=== PATIENT | male | born 1975 | race American Indian/Alaskan Native ===

== ENCOUNTER → 2017-11-04 08:14 | Outpatient (CLI) | payer OTHER, SELFPAY ==
[2017-11-04 10:01] LABS: Add Manual Diff / Slide Review NO; Basophils Percent Auto 0.5 % (0-2); Eosinophils Percent Auto 2.8 % (2-4); Hematocrit 42.3 % (41-53); Hemoglobin 14.3 g/dL (13.5-17.5); Lymphocytes Percent Auto 26.3 % (25-40); Mean Corpuscular HGB Conc 33.9 % (30-36); Mean Corpuscular Hemoglobin 30.4 PG (26-34); Mean Corpuscular Volume 89.6 fL (80-100); Monocytes Percent Auto 5.3 % (3-14); Neutrophils Absolute Auto 3600 /uL (3000-5900); Neutrophils Percent Auto 65.1 % (50-75); Platelet Count 202 X10^3/uL (150-400); Red Blood Cell Count 4.72 X10^6/uL (4.5-5.9); Red Cell Distribution Width 14.8 % (11.6-14.8); White Blood Cell Count 5.5 X10^3/uL (4.5-11.0)
[2017-11-04 10:30] LABS: HEMOLYSIS < 15 (0-50); Iron 122 ug/dL (49-181)
[2017-11-04 10:38] LABS: Alanine Aminotransferase 35 IU/L (21-72); Albumin 4.3 g/dL (3.5-5.0); Albumin Globulin Ratio 1.4 (1.0-2.8); Alkaline Phosphatase 98 U/L (38-126); Aspartate Aminotransferase 26 IU/L (17-59); BUN Creatinine Ratio 14.3 (6-22); Bilirubin Total 0.9 mg/dL (0.2-1.3); Calcium 9.4 mg/dL (8.4-10.2); Cholesterol 215 mg/dL (140-199); Estimated Glomerular Filt Rate > 60.0 mL/min (>60); Globulin 3.1 g/dL (1.7-4.1); Glucose 95 mg/dL (70-100); HDL Cholesterol 38 mg/dL (40-60); HEMOLYSIS < 15 (0-50); LDL Cholesterol Calculated 145 mg/dL (<100); Sodium 141 mmol/L (137-145); Total Protein 7.4 g/dL (6.3-8.2); Triglycerides 162 mg/dL (35-150)
[2017-11-04 10:41] LABS: Percent Iron Saturation 36 % (20-50); Total Iron Binding Capacity 337 ug/mL (261-462); Transferrin 258 mg/dL (206-381)
[2017-11-04 10:45] LABS: Hemoglobin A1C% w Est Avg Glu 5.3 % (4.0-6.0)
[2017-11-04 10:47] LABS: Vitamin D 25 Hydroxy (D3) 35.8 ng/mL (30.0-100.0)
[2017-11-04 11:07] LABS: Ferritin 85.5 ng/mL (17.9-464)
[2017-11-04 11:37] LABS: Folate 13.3 ng/mL (2.76-20.0)
[2017-11-05 21:51] LABS: Zinc 113 mcg/dL (60-130)
[2017-11-06 13:33] LABS: Insulin Level Total 17.2 uIU/mL (2.0-19.6)
[2017-11-06 17:19] LABS: Albumin 4.3 g/dL (3.6-5.1); Sex Hormone Binding Globulin 42 nmol/L (10-50); Testosterone, Bioavailable 143.3 ng/dL (110.0-575.0); Testosterone, Total 631 ng/dL (250-1100); Testosterone,Free 72.8 pg/mL (46.0-224.0)
[2017-11-06 20:57] LABS: Vitamin A 56 mcg/dL (38-98)
[2017-11-08 15:27] LABS: Vitamin B1 152 nmol/L (78-185)
[2017-11-10 11:44] LABS: Vit B12 Binding Capacity unsat 687 pg/mL (650-1340)
== END ==
PROVIDERS: Family Provider Physician Assistant
DX: I10 Essential (primary) hypertension (principal); E78.5 Hyperlipidemia, unspecified; K91.2 Postsurgical malabsorption, not elsewhere classified
CPT/HCPCS: 36415; 80053; 80061; 82040; 82306; 82608; 82728; 82746; 83036; 83525; 83540; 83550; 84270; 84403; 84425; 84590; 84630; 85025

== ENCOUNTER → 2018-07-02 12:34 | Outpatient (CLI) | payer OTHER, SELFPAY ==
[2018-07-02 14:05] LABS: Hematocrit 44.7 % (41-53); Hemoglobin 14.8 g/dL (13.5-17.5); Mean Corpuscular HGB Conc 33.2 % (30-36); Mean Corpuscular Volume 90.4 fL (80-100); Platelet Count 251 X10^3/uL (150-400); Red Blood Cell Count 4.95 X10^6/uL (4.5-5.9); Red Cell Distribution Width 14.4 % (11.6-14.8); White Blood Cell Count 5.3 X10^3/uL (4.5-11.0)
[2018-07-02 14:32] LABS: Alanine Aminotransferase 31 IU/L (21-72); Albumin 4.7 g/dL (3.5-5.0); Albumin Globulin Ratio 1.5 (1.0-2.8); Alkaline Phosphatase 87 U/L (38-126); Aspartate Aminotransferase 26 IU/L (17-59); BUN Creatinine Ratio 21.4 (6-22); Bilirubin Total 0.8 mg/dL (0.2-1.3); Blood Urea Nitrogen 15 mg/dL (9-20); Calcium 9.5 mg/dL (8.4-10.2); Carbon Dioxide 26 mmol/L (22-32); Chloride 106 mmol/L (98-107); Cholesterol 216 mg/dL (140-199); Estimated Glomerular Filt Rate > 60.0 mL/min (>60); Globulin 3.1 g/dL (1.7-4.1); Glucose 88 mg/dL (70-100); HDL Cholesterol 36 mg/dL (40-60); HEMOLYSIS < 15 (0-50); LDL Cholesterol Calculated 157 mg/dL (<100); Potassium 4.2 mmol/L (3.4-5.1); Sodium 143 mmol/L (137-145); Total Protein 7.8 g/dL (6.3-8.2); Triglycerides 117 mg/dL (35-150)
[2018-07-02 15:04] LABS: HEMOLYSIS < 15 (0-50); Iron 140 ug/dL (49-181)
[2018-07-02 15:05] LABS: Ferritin 60.2 ng/mL (17.9-464)
[2018-07-02 15:15] LABS: Percent Iron Saturation 39 % (20-50); Total Iron Binding Capacity 360 ug/dL (261-462); Transferrin 301 mg/dL (206-381)
[2018-07-02 15:36] LABS: Folate 5.2 ng/mL (2.76-20.0); Vitamin B12 548 pg/mL (239-931)
[2018-07-02 16:34] LABS: Vitamin D 25 Hydroxy (D3) 38.9 ng/mL (30.0-100.0)
[2018-07-05 21:21] LABS: Albumin 4.6 g/dL (3.6-5.1); Sex Hormone Binding Globulin 36 nmol/L (10-50); Testosterone, Bioavailable 252.6 ng/dL (110.0-575.0); Testosterone, Total 864 ng/dL (250-1100); Testosterone,Free 120.3 pg/mL (46.0-224.0)
[2018-07-06 07:47] LABS: Vitamin B1 147 nmol/L (78-185)
[2018-07-07 03:47] LABS: Vitamin A 48 mcg/dL (38-98)
[2018-07-07 16:12] LABS: Zinc 96 mcg/dL (60-130)
== END ==
PROVIDERS: Visit Provider Surgery
DX: K91.2 Postsurgical malabsorption, not elsewhere classified (principal); I10 Essential (primary) hypertension; E78.5 Hyperlipidemia, unspecified; M54.9 Dorsalgia, unspecified
CPT/HCPCS: 36415; 80053; 80061; 82040; 82306; 82607; 82728; 82746; 83540; 83550; 84270; 84403; 84425; 84590; 84630; 85027

== ENCOUNTER 2018-12-20 11:34 | Day surgery (SDC) | payer OTHER, SELFPAY ==
[2018-12-02 08:08] VITALS: BMI 40.8
[2018-12-20] VITALS (11 sets, daily range): BP systolic 116–136; BP diastolic 73–90; PULSE 63–88; RESP 8–20; TEMP 36.3–36.8; O2SAT 87–99; BMI 40.8
--- NOTE | 2018-12-20 | DI.RAD.S_ITS ---
PROCEDURE: XR LUMBAR SPINE 2-3V INDICATIONS: LUMBAR LAMINECTOMY TECHNIQUE: 2 views of the lumbar spine were acquired. COMPARISON: [facility], , L-SPINE 2-3 VIEWS, 11/28/2015, 12:24. [facility], , L-SPINE 2-3 VIEWS, 03/05/2015, 8:43. FINDINGS: Bones: Intraoperative positioning of the access port at the posterior elements of L5-S1 for left-sided laminotomy and microdiscectomy. Soft tissues: Overlying bowel gas pattern is normal. No suspicious soft tissue calcifications. IMPRESSION: Left-sided L5-S1 port localization to assist in orthopedic surgical intervention at the lower lumbosacral spine. Dictated by: Jose Roberto Gilliam M.D. on 12/20/2018 at 16:09 Approved by: Jose Roberto Gilliam M.D. on 12/20/2018 at 16:10
[2018-12-20] MEDS: LACTATED RINGERS 1,000 ML 42 ML IV ×2 (12:21→14:41)
--- NOTE | 2018-12-20 13:03 | PM.PREOP ---
Pre-operative Note Interval Note History & Physical reviewed/Exam performed by Physician: Yes Changes to H&P: No
[2018-12-20] MEDS: CEFAZOLIN 2 GM/100 ML FROZ.PIGGY IV (13:35)
--- NOTE | 2018-12-20 14:06 | SUR.OPER ---
Prone on spine table, head in foam head support, padded chest and pelvic supports, gel pad at knees, lower legs supported by pillows; nipples, genitalia and toes free of pressure, arms secured on foam padded arm boards at <90 degrees abduction. Tape over blanket at thigh secured to table.
[2018-12-20] MEDS: BUPIVACAINE 0.25% W/ EPI 30 ML VIAL INJ (14:12)
[2018-12-20] MEDS: methylPREDNISolone acet DEPO 40 MG/ML VIAL IM (14:14)
--- NOTE | 2018-12-20 14:56 | PM.OP.1 ---
Operative Date/Time/Diagnoses Date of procedure: 12/20/18 Time of procedure: 12:56 Pre-op diagnosis: 1. L4-5 spinal stenosis 2. L5-S1 recurrent disc herniation Post-op diagnosis: same Procedure & Clinicians Procedure: 1. L4-5 laminectomy 2. L5-S1 left repeat microdiscectomy 3. Utilization of microsurgical technique and operating microscope Same procedure as scheduled: Yes Indications: Patient has been having chronic back pain and worsening lumbar radiculopathy. Patient failed multiple conservative management with worsening pain weakness and numbness in her lower extremity. Patient has been having difficulty performing activity of daily living. After discussing risks benefits of treatment options, patient elected proceed with surgery. Surgeon: Remi Capellan Medical Assistant Dermatology: Charu Soto Click Yes if Unassisted: No Anesthesia Type: General Operative Notes Closure Type: primary Specimen(s): none sent Estimated Blood Loss (mL): 10 Blood products transfused: none Procedure in detail: Patient was seen in the preoperative area. Risks and benefits of the surgery was discussed with the patient. Informed consent was obtained from the patient and placed in the chart. Surgical site was marked. Patient was taken to the operative room. General anesthesia was administered. Prophylactic antibiotic was given to the patient less than 30 min before the incision was made. Patient was placed into a prone position on the Michael table. Patient's back was then prepped and draped in the sterile fashion. Time-out was performed at this time. Using AP and lateral C-arm imaging the interval between L4-5 L5-S1 was identified and marked on patient's back. A 1 inch incision 1 in from midline was made on the left side. The fascia was incised in line with skin incision. Globus MARS retractors was placed inside the incision and docked onto the L4 lamina. Using microsurgical technique and operating microscope, a L4-5 laminectomy was performed using a Kerrison rongeur. Liagamentum flavum was resected at the site of the lamineotomy with partial facetecomy for decompression of lateral recess. The MARS retractor was then redirected over the L5-S1 level. The disc space at L5-S1 was identified. Microdiscectomy was performed by performing laminotomy at L5-S1 level using a Kerrison rongeur. Microcurettes and pituitary was used to removed herniated disc fragments of disc from the epidural space. Patient was found have significant amount of scar tissue in the epidural space from the prior microdiskectomy. The S1 nerve root and the thecal sac was adherent to the scar tissue. After the microdiskectomy was completed, the area medial lateral superior and inferior to the area of the microdiskectomy was inspected and explored using a micro curette. No other impinging structure was identified. The wound was then irrigated with sterile normal saline. 40 mg Depo-Medrol was placed into the epidural space. The deep fascia was closed with 1-0 Vicryl. The subcutaneous tissue was closed with 2-0 Vicryl. The skin was closed with 4-0 Monocryl. Patient tolerated the procedure well. There were no complications. Patient was transferred recovery room in stable condition. Complications: none Condition: stable Disposition: PACU Plan for aftercare: Discharge to home
[2018-12-20] MEDS: OXYCODONE/ACETAMINOPHEN 5/325 TABLET 1 TAB PO ×2 (15:20→15:55)
== END 2018-12-20 16:04 | disposition home or self-care (01) ==
PROVIDERS: PCP Physician Assistant; Visit Provider Orthopaedic Surgery Orthopaedic Surgery of the Spine
PROC: (CPT 63030; principal; 2018-12-20 13:45)
DX: M48.062 Spinal stenosis, lumbar region with neurogenic claudication (principal); M51.26 Other intervertebral disc displacement, lumbar region; G47.33 Obstructive sleep apnea (adult) (pediatric)
CPT/HCPCS: 63030; 63035; 72100; 76000; J0690; J1030; J1100; J2250; J2405; J2704; J3010